=== PATIENT | female | born 1985 | race African-American/Black ===

== ENCOUNTER 2019-02-16 22:52 | Emergency (ER) | payer MEDICAID ==
[~2019-02-16] VITALS: Ht 165.1 cm; Wt 73.0 kg
[2019-02-17 01:46] VITALS: BP 109/69
== END 2019-02-17 01:47 | disposition home or self-care (01) ==
LOC: ER 22:52
DX: H66.93 Otitis media, unspecified, bilateral (principal); B34.9 Viral infection, unspecified
CPT/HCPCS: 99283

== ENCOUNTER 2019-03-21 20:39 | Emergency (ER) | payer MEDICAID ==
[~2019-03-21] VITALS: Ht 165.1 cm; Wt 76.5 kg
[2019-03-22 00:24] LABS: CLARITY URINE CLEAR (CLEAR); COLOR URINE YELLOW (YELLOW); KETONES URINE NEGATIVE (NEGATIVE); LEUKOCYTE ESTERASE URINE NEGATIVE (NEGATIVE); NITRITE URINE NEGATIVE (NEGATIVE); OCCULT BLOOD URINE 1+ (NEGATIVE); PROTEIN URINE NEGATIVE (NEGATIVE); SPECIFIC GRAVITY URINE 1.025 (1.005-1.030)
[2019-03-22] MEDS ORDERED: KETOROLAC 60MG/2ML VIAL IM ONE (02:30)
[2019-03-22 03:00] VITALS: BP 96/56
[2019-03-24 04:08] LABS: CHLAMYDIA TRACHOMATIS NAA Negative (Negative); NEISSERIA GONORRHOEAE NAA Negative (Negative)
== END 2019-03-22 03:00 | disposition home or self-care (01) ==
LOC: ER 20:39
DX: N94.6 Dysmenorrhea, unspecified (principal)
CPT/HCPCS: 81003; 81025; 87210; 87491; 87591; 96372; 99283; J1885; Z7610